=== PATIENT | female | born 1995 | race Caucasian/White ===

== ENCOUNTER 2022-01-10 14:08 | Emergency (ER) | payer OTHER, SELFPAY ==
--- NOTE | ~2022-01-10 | CT_ITS ---
EXAMINATION: CT ABDOMEN AND PELVIS WITHOUT CONTRAST CLINICAL INFORMATION: Right lower quadrant abdominal pain for one day, nausea. COMPARISON: None TECHNIQUE: Multidetector volumetric imaging was performed from the superior aspect of the liver through the pubic symphysis. Sagittal and coronal reformatted images were obtained on the technologist's workstation. This CT examination was performed using dose optimization techniques as appropriate, variously including the following: *Automated exposure control *Adjustment of mA and/or kV according to patient size (this includes techniques or standardized protocols for targeted exams where dose is matched to indication/reason for exam; i.e. extremities or head) *Use of iterative reconstruction technique DLP: 751 mGy-cm FINDINGS: LUNG BASES: The visualized lung bases are unremarkable. LIVER, GALLBLADDER, AND BILIARY TREE: The liver is normal in size, shape, and attenuation. No focal hepatic lesion or biliary ductal dilatation is present. Gallbladder is partially contracted. No calcified gallstones or pericholecystic inflammatory change. PANCREAS: Unremarkable. SPLEEN: Unremarkable. ADRENAL GLANDS: Unremarkable. KIDNEYS AND URETERS: The kidneys are normal in size, shape, and attenuation. No hydronephrosis, hydroureter, or calculi seen. No perinephric stranding. BLADDER: Unremarkable. GASTROINTESTINAL TRACT: No dilated bowel loops. No bowel wall thickening. The appendix is not discretely visualized. No inflammatory changes at the cecal base to suggest indirect evidence of acute appendicitis. No ascites or free air. ABDOMINAL WALL: No significant hernia is appreciated. LYMPH NODES: No lymphadenopathy. VASCULAR: Normal caliber abdominal aorta. PELVIC VISCERA: Gynecologic structures are grossly unremarkable-limited assessment. OSSEOUS STRUCTURES: Unremarkable. CT/CT abdomen pelvis wo con IMPRESSION: 1. Appendix is not discretely visualized. No inflammatory changes at the cecal base to suggest indirect evidence of acute appendicitis. 2. No acute intra-abdominal process identified.
--- NOTE | ~2022-01-10 | US_ITS ---
EXAMINATION: US PELVIS CLINICAL INFORMATION: Right-sided pelvic pain COMPARISON: CT abdomen pelvis performed earlier the same date TECHNIQUE: Ultrasound of the pelvis is performed using both transabdominal and transvaginal transducers along with Doppler. Transvaginal imaging is performed due to inadequate visualization transabdominally. FINDINGS: Uterus: The uterus is anteverted and measures 7.2 x 3.3 x 4.4 cm. In sagittal, AP, transverse dimensions The double wall endometrial thickness is 1.1 cm. The uterus is smooth in contour and has normal myometrial echogenicity. No visible fibroid. Adnexa: Both ovaries are visualized. There is normal color flow to the adnexa. There is no evidence of ovarian torsion. There is no pelvic ascites or fluid collection. Right ovary measures 3.4 x 2.3 x 2.9, with volume of 11.9 mL. The right ovary contains multiple small hypoechoic follicles. Left ovary measures 2.8 x 1.9 x 1.6, with volume of 4.5. The left ovary contains a couple of small hypoechoic follicles. US/US pelvic ovarian doppler IMPRESSION: 1. Normal uterus and endometrium. 2. Normal appearance of the ovaries. No adnexal cyst or mass. 3. No evidence of ovarian torsion. 4. No free pelvic fluid.
--- NOTE | ~2022-01-10 | US_ITS ---
EXAMINATION: US PELVIS CLINICAL INFORMATION: Right-sided pelvic pain COMPARISON: CT abdomen pelvis performed earlier the same date TECHNIQUE: Ultrasound of the pelvis is performed using both transabdominal and transvaginal transducers along with Doppler. Transvaginal imaging is performed due to inadequate visualization transabdominally. FINDINGS: Uterus: The uterus is anteverted and measures 7.2 x 3.3 x 4.4 cm. In sagittal, AP, transverse dimensions The double wall endometrial thickness is 1.1 cm. The uterus is smooth in contour and has normal myometrial echogenicity. No visible fibroid. Adnexa: Both ovaries are visualized. There is normal color flow to the adnexa. There is no evidence of ovarian torsion. There is no pelvic ascites or fluid collection. Right ovary measures 3.4 x 2.3 x 2.9, with volume of 11.9 mL. The right ovary contains multiple small hypoechoic follicles. Left ovary measures 2.8 x 1.9 x 1.6, with volume of 4.5. The left ovary contains a couple of small hypoechoic follicles. US/US transvaginal IMPRESSION: 1. Normal uterus and endometrium. 2. Normal appearance of the ovaries. No adnexal cyst or mass. 3. No evidence of ovarian torsion. 4. No free pelvic fluid.
--- NOTE | ~2022-01-10 | US_ITS ---
EXAMINATION: US PELVIS CLINICAL INFORMATION: Right-sided pelvic pain COMPARISON: CT abdomen pelvis performed earlier the same date TECHNIQUE: Ultrasound of the pelvis is performed using both transabdominal and transvaginal transducers along with Doppler. Transvaginal imaging is performed due to inadequate visualization transabdominally. FINDINGS: Uterus: The uterus is anteverted and measures 7.2 x 3.3 x 4.4 cm. In sagittal, AP, transverse dimensions The double wall endometrial thickness is 1.1 cm. The uterus is smooth in contour and has normal myometrial echogenicity. No visible fibroid. Adnexa: Both ovaries are visualized. There is normal color flow to the adnexa. There is no evidence of ovarian torsion. There is no pelvic ascites or fluid collection. Right ovary measures 3.4 x 2.3 x 2.9, with volume of 11.9 mL. The right ovary contains multiple small hypoechoic follicles. Left ovary measures 2.8 x 1.9 x 1.6, with volume of 4.5. The left ovary contains a couple of small hypoechoic follicles. US/US pelvic complete IMPRESSION: 1. Normal uterus and endometrium. 2. Normal appearance of the ovaries. No adnexal cyst or mass. 3. No evidence of ovarian torsion. 4. No free pelvic fluid.
[2022-01-10 14:50] VITALS: BP 120/63; PULSE 90; RESP 18; TEMP 36.6; O2SAT 98; BMI 33.3
[2022-01-10 14:58] LABS: MANUAL DIFF FLAG NO
[2022-01-10 15:02] LABS: Basophils Percent Auto 0.3 % (0-2); Eosinophils Percent Auto 0.4 % (0-4); Hemoglobin 11.5 g/dl (12.0-16.0); Imm Gran Abs Auto 0.02 X10*3/uL (0.00-0.03); Imm Gran Pct Auto 0.3 % (0.0-0.4); Lymphocytes Absolute Auto 2.1 X10*3/uL (1.2-4.9); Lymphocytes Percent Auto 26.4 % (20-40); Mean Corpuscular HGB Conc 30.3 g/dl (31.0-35.0); Mean Corpuscular Hemoglobin 23.7 pg (27.0-33.0); Mean Corpuscular Volume 78.4 fL (80.0-98.0); Mean Platelet Volume 9.5 fL (9.4-12.3); Monocytes Absolute Auto 0.6 X10*3/uL (0.1-1.2); Monocytes Percent Auto 7.3 % (2-11); Neutrophils Absolute Auto 5.1 x10*3/uL (2.0-8.3); Neutrophils Percent Auto 65.3 % (45-73); Platelet Count 317 X10*3/uL (160-400); Red Blood Count 4.85 X10*6/uL (4.20-5.50); Red Cell Distribution Width 15.5 % (11.0-16.0); White Blood Count 7.8 X10*3/uL (4.8-10.8)
[2022-01-10 15:18] LABS: Alanine Aminotransferase 15 U/L (0-31); Albumin Level 3.9 g/dL (3.5-5.0); Alkaline Phosphatase 65 U/L (39-117); Anion Gap 10 (12-20); Aspartate Amino Transferase 17 U/L (5-31); Bilirubin Direct < 0.2 mg/dL (0.0-0.5); Bilirubin Total 0.4 mg/dL (0.0-1.0); Blood Urea Nitrogen 8 mg/dL (9-16); Calcium 8.6 mg/dL (8.4-10.2); Carbon Dioxide 28 mmol/L (22-29); Chloride 106 mmol/L (96-108); Creatinine Clr Calc Pharmacy 121.6; Estimated Glomerular Filt Rate > 60; Glucose Random 107 mg/dL (60-115); Lipase 17 U/L (8-78); Sodium 140 mmol/L (135-145); Total Protein 6.9 g/dL (6.5-8.0)
[2022-01-10 15:23] LABS: HCG Quantitative < 2 mIU/mL
[2022-01-10 16:12] LABS: Appearance Urine CLEAR; Color Urine YELLOW; Glucose Urine UA NEG (NEG); Leukocyte Esterase Urine NEG (NEG); Nitrite Urine NEG (NEG); Specific Gravity - Urine 1.025 (1.005-1.025); Urine Blood NEG (NEG); Urine Ketones NEG (NEG); Urine Protein TRACE MG/DL (NEG-TRACE)
--- NOTE | 2022-01-10 18:37 | ED.ABDPAIN ---
HPI - Abdominal Pain General Chief Complaint: Abdominal Pain Stated Complaint: abd pain Time Seen by Provider: 01/10/22 14:11 Source: patient Mode of arrival: ambulatory Limitations: no limitations History of Present Illness HPI narrative: 26-year-old female with a history of asthma, IBS presents with lower abdominal cramping bilateral right greater than left since last evening with nausea. Patient denies fevers, chills, diarrhea or constipation. Pain feels better with bowel movements. No urinary symptoms or vaginal discharge. Related Data Allergies Allergy/AdvReac Type Severity Reaction Status Date / Time apple [Apple] AdvReac Unknown STOMACH Verified 01/10/22 14:50 PAIN Review of Systems Review of Systems Yes all other systems are reviewed and are negative Constitutional: Reports no additional constitutional complaints, Denies body ache(s), Denies chills, Denies fever(s), Denies headache(s) and Denies weakness Eyes: Reports no additional eye complaints and Denies change in vision Reports system reviewed and no additional complaints, except as documented, Denies dizziness, Denies headache(s), Denies nasal congestion, Denies nasal discharge and Denies neck pain Cardiovascular: Reports no additional cardiovascular complaints, Denies chest pain, Denies leg edema and Denies dyspnea Respiratory: Reports no additional respiratory complaints, Denies cough and Denies dyspnea Gastrointestinal: Reports no additional gastrointestinal complaints, Reports abdominal pain, Denies diarrhea, Reports nausea and Denies vomiting Genitourinary: Reports no additional female genitourinary complaints and Denies urinary incontinence Musculoskeletal: Reports no additional musculoskeletal complaints, Denies back pain, Denies arthralgias, Denies joint swelling, Denies neck pain, Denies numbness and Denies tingling Skin/Breast: Reports system reviewed and no additional complaints, except as docu and Denies rash Reports system reviewed and no additional complaints, except as documented, Denies dizziness, Denies headache(s), Denies numbness, Denies tingling and Denies weakness [facility] Past Medical History Attestation statement: The following information was validated with the patient. Source: old records reviewed and nursing notes reviewed Social History Social History Advance Directives: No Advance Directives Information Provided: Yes Physical Exam ED Vital Signs: Vital Signs - 24 hr 01/10/22 14:50 01/10/22 18:40 01/10/22 19:52 Temperature 97.8 F 96.6 F L 97.4 F Pulse Rate 90 86 72 Respiratory Rate 18 16 16 Blood Pressure 120/63 121/63 124/60 Pulse Oximetry 98 100 98 Oxygen Delivery Method Room Air Room Air Room Air 01/10/22 22:00 Temperature 98.0 F Pulse Rate 96 Respiratory Rate 16 Blood Pressure 114/65 Pulse Oximetry 98 Oxygen Delivery Method Room Air BMI result Body Mass Index 33.3 Const General: cooperative, healthy appearing, comfortable and no acute distress Orientation/consciousness: patient oriented x3 Limitations: no limitations HENMT Head: Yes normal to inspection Ears: hearing grossly normal bilaterally Eyes General: appearance normal, both eyes and all related structures Pupils: Equal, round and reactive pupils present Neck Neck: Yes normal visual inspection, Yes full ROM, Yes no lymphadenopathy and Yes no meningeal signs Chest Chest palpation & inspection: normal inspection of the chest Resp Effort & Inspection: normal respiratory effort Auscultation: clear to auscultation bilaterally Cardio Rate: regular rate Rhythm: regular rhythm Peripheral pulses: Peripheral pulses 2+ throughout GI Inspection: Yes normal to inspection Palpation (GI): Soft to palpation and Tenderness to palpation present (GI) (Bilateral lower quadrant right greater than left no rebound or guarding) Skin General skin exam: no rashes or lesions noted Neuro General: patient oriented x3, moves all extremities and no meningeal signs Cranial nerves: Yes Equal, round and reactive pupils present Cognition (Neuro): normal cognition Gait exam (Neuro): Normal gait present Extrem General: Yes normal to inspection, Yes no pedal edema and Yes no calf tenderness Course Course Course Narrative: CT is unable to visualize the appendix. There is no inflammatory changes at the cecal base suggest acute appendicitis. No other acute intra-abdominal process identified. I went to reexamine the patient. She does have some right lower and left lower quadrant pain but it is more focal in the right lower quadrant. She has no leukocytosis, no fever to suggest acute appendicitis. I do believe acute appendicitis is less likely and this was discussed with my attending physician Dr. Ware. However we would like to rule out ovarian torsion and ovarian cyst so will check pelvic ultrasound Reevaluation(s) Reevaluation #1: 9000-Pelvic US normal. Discussed with patient. She should return for worsening abdominal pain, fever, vomiting. Patient is tolerating PO. Feels good. Comfortable with plan for discharge home. MDM - Abdominal Pain MDM Narrative Medical decision making narrative: 26-year-old female here with about 12 hours of lower abdominal cramping right greater the left which improves with defecation and associated nausea. On exam patient has tenderness in the lower quadrants right greater the left with no rebound or guarding Will check labs, UA, CT Differential Diagnosis Differential diagnosis narrative:: Appendicitis, gastroenteritis, IBS, Medical Records Attestation: I reviewed the patient's medical records. Lab Data Attestation: I reviewed the patient's lab results. Result diagrams: 01/10/22 14:54 01/10/22 14:54 Labs: Lab Results 01/10/22 01/10/22 01/10/22 Range/Units 14:54 14:54 15:42 WBC 7.8 (4.8-10.8) X10*3/uL RBC 4.85 (4.20-5.50) X10*6/uL Hgb 11.5 L (12.0-16.0) g/dl Hct 38.0 (37.0-47.0) % MCV 78.4 L (80.0-98.0) fL MCH 23.7 L (27.0-33.0) pg MCHC 30.3 L (31.0-35.0) g/dl RDW 15.5 (11.0-16.0) % Plt Count 317 (160-400) X10*3/uL MPV 9.5 (9.4-12.3) fL Immature Gran % (Auto) 0.3 (0.0-0.4) % Neut % (Auto) 65.3 (45-73) % Lymph % (Auto) 26.4 (20-40) % [place] % (Auto) 7.3 (2-11) % Eos % (Auto) 0.4 (0-4) % Baso % (Auto) 0.3 (0-2) % Lymph # (Auto) 2.1 (1.2-4.9) X10*3/uL [place] # (Auto) 0.6 (0.1-1.2) X10*3/uL Eos # (Auto) 0.0 (0.0-0.4) X10*3/uL Baso # (Auto) 0.0 (0.0-0.2) X10*3/uL Abs Immat Gran (auto) 0.02 (0.00-0.03) X10*3/uL Absolute Neuts (auto) 5.1 (2.0-8.3) x10*3/uL Absolute Nucleated RBC 0.000 (0.0-0.012) X10*3/uL Nucleated RBC % (auto) 0.0 (0.0-0.2) /100WBC Sodium 140 (135-145) mmol/L Potassium 4.0 (3.3-5.1) mmol/L Chloride 106 (96-108) mmol/L Carbon Dioxide 28 (22-29) mmol/L Anion Gap 10 L (12-20) BUN 8 L (9-16) mg/dL Creatinine 0.81 (0.5-1.4) mg/dL Estim Creat Clear Calc 121.6 Estimated GFR > 60 Random Glucose 107 (60-115) mg/dL Calcium 8.6 (8.4-10.2) mg/dL Total Bilirubin 0.4 (0.0-1.0) mg/dL Direct Bilirubin < 0.2 (0.0-0.5) mg/dL AST 17 (5-31) U/L ALT 15 (0-31) U/L Alkaline Phosphatase 65 (39-117) U/L Total Protein 6.9 (6.5-8.0) g/dL Albumin 3.9 (3.5-5.0) g/dL Lipase 17 (8-78) U/L Beta HCG, Quant < 2 mIU/mL Urine Color YELLOW Urine Appearance CLEAR Urine pH 6.0 (5.0-8.0) Ur Specific [place] 1.025 (1.005-1.025) Urine Protein TRACE (NEG-TRACE) MG/DL Urine Glucose (UA) NEG (NEG) MG/DL Urine Ketones NEG (NEG) MG/DL Urine Blood NEG (NEG) Urine Nitrite NEG (NEG) Ur Leukocyte Esterase NEG (NEG) Imaging Data CT scan - abdomen: Attestation: I personally reviewed and interpreted this imaging study as follows: Radiologist's impression: FINDINGS: LUNG BASES: The visualized lung bases are unremarkable.? LIVER, GALLBLADDER, AND BILIARY TREE: The liver is normal in size, shape, and attenuation. No focal hepatic lesion or biliary ductal dilatation is present. Gallbladder is partially contracted. No calcified gallstones or pericholecystic inflammatory change.? PANCREAS: Unremarkable.? SPLEEN: Unremarkable.? ADRENAL GLANDS: Unremarkable.? KIDNEYS AND URETERS: The kidneys are normal in size, shape, and attenuation. No hydronephrosis, hydroureter, or calculi seen. No perinephric stranding. ? BLADDER: Unremarkable.? GASTROINTESTINAL TRACT: No dilated bowel loops. No bowel wall thickening. The appendix is not discretely visualized. No inflammatory changes at the cecal base to suggest indirect evidence of acute appendicitis. No ascites or free air.? ABDOMINAL WALL: No significant hernia is appreciated.? LYMPH NODES: No lymphadenopathy. VASCULAR: Normal caliber abdominal aorta. PELVIC VISCERA: Gynecologic structures are grossly unremarkable-limited assessment.? OSSEOUS STRUCTURES: Unremarkable.? CT/CT abdomen pelvis wo con IMPRESSION: ? 1. Appendix is not discretely visualized. No inflammatory changes at the cecal base to suggest indirect evidence of acute appendicitis. 2. No acute intra-abdominal process identified.? ? ? pelvic US: Attestation: I personally reviewed and interpreted this imaging study as follows: Radiologist's impression: FINDINGS: Uterus: The uterus is anteverted and measures 7.2 x 3.3 x 4.4 cm. In sagittal, AP, transverse dimensions The double wall endometrial thickness is 1.1 cm.? The uterus is smooth in contour and has normal myometrial echogenicity. ? No visible fibroid. Adnexa: Both ovaries are visualized. There is normal color flow to the adnexa. There is no evidence of ovarian torsion.? There is no pelvic ascites or fluid collection. Right ovary measures 3.4 x 2.3 x 2.9, with volume of 11.9 mL. The right ovary contains multiple small hypoechoic follicles. Left ovary measures 2.8 x 1.9 x 1.6, with volume of 4.5. The left ovary contains a couple of small hypoechoic follicles. US/US pelvic ovarian doppler IMPRESSION: ? 1. Normal uterus and endometrium. 2. Normal appearance of the ovaries. No adnexal cyst or mass. 3. No evidence of ovarian torsion. 4. No free pelvic fluid. Discharge Plan Discharge Clinical Impression: Abdominal pain Patient Disposition: Home, Self-Care Instructions: Abdominal Pain (ED) Additional Instructions: Your ovaries are normal on your ultrasound Your lab work is normal Your CT scan of your abdomen looks good but we were unable to visualize your appendix. We discussed how at this time it does not appear that you have acute appendicitis. However, please return if you have worsening abdominal pain, fever, vomiting as discussed Referrals: Physician,Satinder J [Primary Care Provider] - Interventions: ED Discharge Assessment Last Done: 01/10/22 23:06 Discharge Date/Time: 01/10/22 23:06
[2022-01-10 18:40] VITALS: BP 121/63; PULSE 86; RESP 16; TEMP 35.9; O2SAT 100
[2022-01-10 19:52] VITALS: BP 124/60; PULSE 72; RESP 16; TEMP 36.3; O2SAT 98
[2022-01-10 22:00] VITALS: BP 114/65; PULSE 96; RESP 16; TEMP 36.7; O2SAT 98
== END 2022-01-10 23:06 | disposition home or self-care (01) ==
PROVIDERS: Emergency Provider Emergency Medicine
DX: R10.30 Lower abdominal pain, unspecified (principal)
CPT/HCPCS: 36415; 74176; 76830; 76856; 80048; 80076; 81003; 83690; 84702; 85025; 93975; 99283; 99284